=== PATIENT | male | born 1985 | race Two or more races ===

== ENCOUNTER 2018-06-10 11:50 | Emergency (ER) | payer MEDICAID, OTHER ==
[~2018-06-10] VITALS: Ht 180.3 cm; Wt 120.2 kg
[2018-06-10 12:13] VITALS: BP 126/86
--- NOTE | 2018-06-10 12:50 | Emergency Room Report ---
History of Present Illness General Chief Complaint: Laceration Source: Patient Present Illness HPI Patient is a 33-year-old male who presents today with a laceration to the third and fourth finger on the right hand. 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 He states his last tetanus immunization was 7 months ago. He states pain is minimal at this time. Denies any other injuries. Allergies: Uncoded Allergies: CHOCOLATE (Allergy, Severe, 06/10/18) edema Patient History Reviewed Nursing Documentation: PMH: Agreed; PSxH: Agreed Nursing Documentation-PMH Past Medical History: No Stated History Review of Systems Skin: Reports: other - laceration All Other Systems: negative except mentioned in HPI Physical Exam Vital Signs Date Time Temp Pulse Resp B/P (MAP) Pulse Ox O2 Delivery O2 Flow Rate FiO2 06/10/18 12:03 98.4 91 18 126/86 98 Room Air 98.4 Sp02 EP Interpretation: reviewed, normal General Appearance: no apparent distress, alert, GCS 15, non-toxic Head: normocephalic, atraumatic Eyes: bilateral eye normal inspection, bilateral eye PERRL ENT: hearing grossly normal, normal pharynx, no angioedema, normal voice Neck: full range of motion, supple/symm/no masses Respiratory: chest non-tender, lungs clear, normal breath sounds, speaking full sentences Cardiovascular #1: regular rate, rhythm, no edema Cardiovascular #2: 2+ carotid (R), 2+ carotid (L), 2+ radial (R), 2+ radial (L) , 2+ dorsalis pedis (R), 2+ dorsalis pedis (L) Gastrointestinal: normal bowel sounds, non tender, soft, non-distended, no guarding, no rebound Rectal: deferred Genitourinary: normal inspection, no CVA tenderness Musculoskeletal: back normal, gait/station normal, normal range of motion, non- tender, calf tenderness Neurologic: alert, oriented x3, responsive, motor strength/tone normal, sensory intact, speech normal Psychiatric: judgement/insight normal, memory normal, mood/affect normal, no suicidal/homicidal ideation Reflexes: 3+ bicep (R), 3+ bicep (L), 3+ tricep (R), 3+ tricep (L), 3+ knee (R) , 3+ knee (L) Skin: normal color, no rash, warm/dry, well hydrated, other - 2 cm laceration overlying the PIP on thepalmar aspect of third and fourth fingerson the right hand Lymphatic: no adenopathy Procedures Laceration/Wound Repair Laceration/Wound Repair : Consent: Verbal Wound Location: upper extremity Wound's Depth, Shape: superficial, linear Wound Explored: clean Irrigated w/ Saline (ccs): 10 Betadine Prep?: Yes Anesthesia: 1% Lidocaine Volume Anesthetic (ccs): 7 Wound Debrided: extensive Wound Repaired With: sutures Suture Size/Type: 4:0 Number of Sutures: 6 Layer Closure?: No Sterile Dressing Applied?: Yes Patient Tolerated: Well Complications: None Progress 2 lacerations in total. First laceration on the third finger required 2 sutures , the second laceration on the fourth finger required 4 sutures. Medical Decision Making PA Attestation Supervising physician is Dr. Erickson Reaction to Intervention: Improved Diagnostic Impression: Primary Impression: Laceration of finger of right hand ER Course Laceration was repaired in the ED. Wound is cleaned and dressed. Patient is educated on wound care instruction and scarring. Instructed to have sutures removed in 7-10 days. Last Vital Signs Date Time Temp Pulse Resp B/P (MAP) Pulse Ox O2 Delivery O2 Flow Rate FiO2 06/10/18 12:13 98.4 18 126/86 98 Room Air 98.4 06/10/18 12:03 91 Status: improved Disposition: HOME, SELF-CARE Condition: Stable Patient Instructions: Laceration Care, Adult Hanny Coreas Jun 10, 2018 12:50
[2018-06-10 13:00] VITALS: BP 126/86
== END 2018-06-10 13:00 | disposition home or self-care (01) ==
LOC: EMR 12:48
DX: S61.212A Laceration without foreign body of right middle finger without damage to nail, initial encounter (principal); S61.214A Laceration without foreign body of right ring finger without damage to nail, initial encounter; W45.8XXA Other foreign body or object entering through skin, initial encounter; Y92.89 Other specified places as the place of occurrence of the external cause
CPT/HCPCS: 12001; 99282; Z7502